=== PATIENT | female | born 1975 | race Two or more races ===

== ENCOUNTER → 2024-12-28 | Outpatient (CLI) | payer BC, SELFPAY ==
--- NOTE | 2024-12-28 09:30 | XR_ITS ---
Examination: Screening digital mammography, bilateral Computer aided detection 3-D breast Tomosynthesis, bilateral Date and time of exam: December 28, 2024 0933 hours Indication: Screening Technique: Nonmagnified MLO, CC views of the breasts to been obtained, reconstructed from 3-D Tomosynthesis images. R2 computer aided detection program utilized for evaluation of suspicious masses and/or abnormal calcifications. 3-D Tomosynthesis images obtained. Findings: The breasts are heterogeneously dense, which may obscure small masses 17 mm nodule with indistinct margins inner upper right breast anterior depth 14 mm nodule 3:00 position left breast Impression: BI-RADS Category 0: Incomplete: Need additional imaging evaluation Recommend follow-up spot tomographic views of 14 mm nodule 3:00 position left breast Recommend follow-up spot tomographic views of 17 mm nodule with indistinct margins inner upper right breast anterior depth as well as bilateral breast sonography to complete the workup
== END | disposition home or self-care (01) ==
PROVIDERS: Referring Provider Physician Assistant Medical; Visit Provider Physician Assistant Medical
DX: Z12.31 Encounter for screening mammogram for malignant neoplasm of breast (principal); R92.8 Other abnormal and inconclusive findings on diagnostic imaging of breast; N63.25 Unspecified lump in the left breast, overlapping quadrants; N63.12 Unspecified lump in the right breast, upper inner quadrant
CPT/HCPCS: 77063; 77067

== ENCOUNTER → 2025-03-24 | Outpatient (CLI) | payer BC, SELFPAY ==
--- NOTE | 2025-03-24 09:00 | XR_ITS ---
Examination: Breast ultrasound complete, bilateral Date and time of exam: March 24, 2025, 0922 hours INDICATIONS: Mammogram 12/29/1999 2517 mm nodule indistinct margins inner upper right breast 14 mm nodule 3 o'clock position left breast Technique: Real-time grayscale ultrasonographic imaging bilateral breasts, including all 4 quadrants as well as nipple retroareolar and axillary regions. Findings: Sonographic images right breast 1:00 cyst 5 x 4 mm 3:00 nodule lobular margins 8 x 5 mm Sonographic images left breast 9:00 cyst 4 x 4 mm 2:00 lipoma versus glandular tissue 3.4 x 1.4 x 2.8 cm indistinct margins IMPRESSION: BI-RADS Category 4: Suspicious for malignancy Suspicious mass 2 o'clock position left breast, biopsy is needed to exclude breast carcinoma, this mass is amenable to ultrasound-guided breast biopsy for diagnosis
--- NOTE | 2025-03-24 10:00 | XR_ITS ---
Examination: Diagnostic digital mammography, bilateral Computer aided detection 3-D breast Tomosynthesis, bilateral Date and time of exam: March 24, 2025, 0951 hours INDICATIONS: Mammogram 12/28/2024 17 mm nodule indistinct margins inner upper right breast 14 mm nodule 3 o'clock position left breast Technique: Nonmagnified MLO, CC views of the breasts to been obtained, reconstructed from 3-D Tomosynthesis images. R2 computer aided detection program utilized for evaluation of suspicious masses and/or abnormal calcifications. 3-D Tomosynthesis images obtained. Findings: The breasts are heterogeneously dense, which may obscure small masses Nodular asymmetry persists on the spot compression cc view in the right breast possibly upper right breast on the MLO view 2:00 nodule left breast indistinct margins, 30 mm, likely corresponding to 2:00 nodule described on the prior sonogram today Impression: BI-RADS Category 4: Suspicious for malignancy Suspicious nodule 2 o'clock position left breast, best depicted on the left breast sonogram today, biopsy is needed to exclude breast carcinoma, this nodule is amenable to ultrasound-guided breast biopsy for diagnosis.
== END | disposition home or self-care (01) ==
PROVIDERS: PCP Physician Assistant Medical; Referring Provider Physician Assistant Medical; Visit Provider Physician Assistant Medical
DX: R92.343 Mammographic extreme density, bilateral breasts (principal); N63.21 Unspecified lump in the left breast, upper outer quadrant
CPT/HCPCS: 76641; 77062; 77066; G0279